=== PATIENT | male | born 1965 | race Caucasian/White ===

== ENCOUNTER → 2019-01-23 | Outpatient (CLI) | payer MEDICARE, OTHER | END | disposition home or self-care (01) | LOC: RADMRIMAIN 10:35 | PROVIDERS: ATTEND Urology | DX: Z53.9 Procedure and treatment not carried out, unspecified reason (principal) ==

== ENCOUNTER → 2019-02-06 | Outpatient (CLI) | payer MEDICARE, OTHER ==
--- NOTE | 2019-02-06 14:29 | MR ---
EXAMINATION TYPE: MR Prostate wo/w con DATE OF EXAM: 02/06/2019 COMPARISON: None. IMAGE QUALITY: Suboptimal but repeat not required. Some artifact through the rectum is present INDICATION: Elevated PSA PSA: 5.9 ng/ml on August 06, 2018 and 4.4 on June 26, 2018 Recent Biopsy and Date: November 17, 2018 Pathology Report (If Applicable): Atypical glands left mid zone medial and left apical medial TECHNIQUE: Examination was performed using a 3T MRI without an endorectal coil. Multiparametric imaging was perf ormed with T2 mutliplanar sequences, axial diffusion weighted imaging and dynamic contrast enhanced i maging, utilizing 6 mL intravenous Gadavist gadolinium contrast. FINDINGS: There is no clinically significant cancer identified. PROSTATE VOLUME: 4.0 cm SI x 3.4 cm AP x 4.3 cm LR Vol= 30.6 cc PSA DENSITY: 3.67 ng/ml/cc Peripheral zone show some heterogeneous areas of indistinct hypointensity for reference image [id number] rig ht mid zone towards the apex. Transitional zone shows overall heterogeneous appearance without suspicious area of hypointensity. The capsule appears intact. Seminal vesicles are within normal limits. There is slight central bulgin g into the bladder base. Bladder wall is mildly thickened and trabeculated. Findings consistent with outlet obstruction related to mild BPH. There are diverticula in the visualized portion of sigmoid colon. No concerning pelvic fluid collecti on or adenopathy. Visualized osseous structures are intact. IMPRESSION: A focus of clinically significant cancer is not identified. Highest Assessment Category: 2 MRI Stage: T0 N0 M0 based on review of pelvic images. False negative rates for MRI range from 5-20% depending on risk profile. Assessment Categories: 2 ? Low (clinically significant cancer is unlikely to be present) NA = not applicable/not available
== END ==
LOC: RADMRIMAIN 12:25
PROVIDERS: ATTEND Urology
DX: R97.20 Elevated prostate specific antigen [PSA] (principal)
CPT/HCPCS: 72197; A9585